=== PATIENT | male | born 1935 ===

== ENCOUNTER 2017-09-23 09:07 | Emergency (ER) | payer OTHER ==
[~2017-09-23] VITALS: Ht 180.3 cm; Wt 79.4 kg
[2017-09-23] MEDS ORDERED: ZOCOR20 MG (09:37)
[2017-09-23] MEDS ORDERED: ALBUTEROL1.25 MG/3 (09:37)
[2017-09-23] MEDS ORDERED: LISINOPRIL20 MG (09:37)
[2017-09-23] MEDS ORDERED: COUMADIN2.5 MG (09:37)
[2017-09-23] MEDS ORDERED: CARVEDILOL12.5 MG (09:38)
[2017-09-23] MEDS ORDERED: AMIODARONE HCL100 MG (09:38)
[2017-09-23] MEDS ORDERED: OMEPRAZOLE20 M1 (09:38)
[2017-09-23] MEDS ORDERED: LORATADINE10 M2 (09:39)
[2017-09-23] MEDS ORDERED: ASPIRIN81 MG (09:39)
[2017-09-23] MEDS ORDERED: SILDENAFIL CITR50 MG (09:39)
== END 2017-09-23 13:41 | disposition home or self-care (01) ==
LOC: ER 09:07
DX: R06.02 Shortness of breath (principal); J11.1 Influenza due to unidentified influenza virus with other respiratory manifestations